=== PATIENT | male | born 1960 | race Caucasian/White ===

== ENCOUNTER 2020-04-11 20:45 | Emergency (ER) | payer OTHER ==
[~2020-04-11] VITALS: Ht 182.9 cm; Wt 108.9 kg
[2020-04-11] MEDS ORDERED: PLAVIX 75 MG TA75 MG PO (21:10)
[2020-04-11] MEDS ORDERED: METFORMIN HCL500 M3 PO (21:10)
[2020-04-11] MEDS ORDERED: CIALIS5 MG PO (21:11)
[2020-04-11] MEDS ORDERED: LIPITOR 40 MG T40 M1 PO (21:11)
[2020-04-11] MEDS ORDERED: LISINOPRIL10 MG PO (21:11)
[2020-04-11] MEDS ORDERED: LEVO-T50 MCG PO (21:11)
[2020-04-11 23:03] LABS: ABSOLUTE BASOPHILS 0.1 thou/uL (0.0-0.2); ABSOLUTE LYMPHOCYTES 1.3 thou/uL (0.8-5.3); ABSOLUTE MONOCYTES 0.9 thou/uL (0.0-1.2); ABSOLUTE NEUTROPHILS 6.6 thou/uL (1.6-8.1); BASOPHILS 0.6 %; EOSINOPHILS 0.1 %; HEMATOCRIT 44.9 % (42.0-52.0); HEMOGLOBIN 15.4 gm/dL (14.0-18.0); LYMPHOCYTES 14.5 %; MCH 29.2 pg (26.0-34.0); MCHC 34.4 g/dL (28.0-37.0); MONOCYTES 9.9 %; MPV 6.6 fl. (7.2-11.1); NUCLEATED RBCS 0 /100WBC; PLATELET COUNT* 177 thou/uL (150-400); POLYS 74.9 %; RBC 5.28 mil/uL (4.50-6.00); RDW-CV 16.5 % (10.5-14.5); WBC 8.9 thou/uL (4.0-11.0)
[2020-04-11 23:17] LABS: CALCIUM 8.7 mg/dL (8.5-10.1); CREATININE 1.1 mg/dL (0.6-1.3)
[2020-04-11 23:21] LABS: ALBUMIN 3.3 g/dL (3.4-5.0); MAGNESIUM 2.1 mg/dL (1.8-2.4); TOTAL BILIRUBIN 0.6 mg/dL (<0.1-1.0)
[2020-04-11 23:45] LABS: INFLUENZA A ANTIGEN Negative (Negative); INFLUENZA B ANTIGEN Negative (Negative)
[2020-04-12 00:41] LABS: URINE BILIRUBIN NEGATIVE (Negative); URINE BLOOD NEGATIVE (Negative); URINE CLARITY CLEAR; URINE COLOR YELLOW; URINE GLUCOSE-RANDOM NEGATIVE (Negative); URINE KETONES TRACE (Negative); URINE LEUKOCYTES-REFLEX NEGATIVE (Negative); URINE NITRITE-REFLEX NEGATIVE (Negative); URINE PROTEIN NEGATIVE (Negative); URINE SPECIFIC GRAVITY 1.015 (1.005-1.030)
[2020-04-12 03:25] VITALS: BP 111/72
--- NOTE | 2020-04-13 15:03 | EKG ---
[place] [address] ELECTROCARDIOGRAM REPORT Name: MAXX PERSON III Room: [facility]#: [id number] Admission: 04/11/20 Attend Phys: Discharge: 04/12/20 Date of : 56 Date of Service: 04/11/202113 Report #: [id number] THIS REPORT FOR: //name// [facility] ED Test Date: 2020-04-11 Test Time: 21:14:57 Pat Name: MAXX PERSON Department: Room: Gender: Clinical Administrator: [facility] : 1960 Requested By: Fabiana Chan Order Number: [id number] Edgar MD: Raoul Molina Measurements Intervals [place] Rate: 127 P: 51 TX: 154 QRS: 161 QRSD: 91 T: 38 QT: 300 QTc: 437 Interpretive Statements Sinus tachycardia Right axis deviation Low voltage, precordial leads Baseline wander in lead(s) V6 No previous ECG available for comparison Electronically Signed On 04-13-2020 15:03:45 [employer] by Raoul Molina [email or web address] <ELECTRONICALLY SIGNED> By: Raoul Molina MD, FAC 04/13/20 1503 13 13 Raoul Molina MD, [facility] /EPI
== END 2020-04-12 03:25 | disposition home or self-care (01) ==
LOC: M.ERS 20:45
PROVIDERS: Personal Emergency Response Attendant
DX: M25.551 Pain in right hip (principal); Z20.828 Contact with and (suspected) exposure to other viral communicable diseases; R50.9 Fever, unspecified; Z86.73 Personal history of transient ischemic attack (TIA), and cerebral infarction without residual deficits; Z79.899 Other long term (current) drug therapy